=== PATIENT | female | born 1950 | race Caucasian/White ===

== ENCOUNTER 2018-01-05 01:16 | Observation (INO) ==
[2018-01-05] MEDS ORDERED: NITROGLYCERIN 2% OINT 1 INCH/GM PACK TOP STA (01:50)
[2018-01-05] MEDS ORDERED: ONDANSETRON 4 MG/2 ML VIAL IV STA ×2 (01:50→03:33)
[2018-01-05] MEDS ORDERED: MORPHINE 2 MG/1 ML SYRINGE IV STA ×2 (01:50→02:13)
[2018-01-05] MEDS ORDERED: ASPIRIN 325 MG TABLET PO STA (01:52)
[2018-01-05] MEDS ORDERED: TICAGRELOR 90 MG TABLET PO STA (01:52)
[2018-01-05] MEDS ORDERED: HEPARIN 5,000 UNIT/1 ML VIAL IV STA (01:53)
[2018-01-05] MEDS ORDERED: TICAGRELOR 90 MG TABLET ONE (01:55)
[2018-01-05] MEDS ORDERED: NITROGLYCERIN 2% OINT 1 INCH/GM PACK TOP ONE (01:55)
[2018-01-05] MEDS ORDERED: ONDANSETRON 4 MG/2 ML VIAL ONE (01:56)
[2018-01-05] MEDS ORDERED: ASPIRIN 325 MG TABLET ONE (01:56)
[2018-01-05] MEDS ORDERED: HEPARIN 5,000 UNIT/1 ML VIAL ONE (01:56)
[2018-01-05] MEDS ORDERED: MORPHINE 2 MG/1 ML SYRINGE ONE (02:08)
[2018-01-05] MEDS ORDERED: HEPARIN/NACL 0.9% 2 UNITS/ML 0 ML IV ONE (02:08)
[2018-01-05] MEDS ORDERED: LIDOCAINE 1% 20 ML VIAL ONE ×2 (02:08→09:36)
[2018-01-05 02:10] LABS: Hemoglobin 15.8 GM/DL (12.0-16.0); Red Blood Count 4.45 MC/CUMM (3.8-5.5); White Blood Count 10.2 T/CUMM (4-12)
[2018-01-05 02:11] LABS: Basophils # 0.1 10*3/uL (0.0-0.2); Basophils % 1.1 % (0.0-0.8); Eosinophils % 0.1 % (0.00-10.9); Hematocrit 44.9 VOL% (35.7-47.0); Immature Granulocytes % 0.5 %; Immature Granulocytes Absolute 0.05 #; Lymphocytes # 1.3 10*3/uL (1.4-4.0); Lymphocytes % 12.2 % (21.3-54.2); Mean Corpuscular HGB Conc 35.2 GM/DL (32-36); Mean Corpuscular Hemoglobin 36 PG (27-34); Mean Corpuscular Volume 100.9 FL (87-102); Mean Platelet Volume 10.7 FL (9.6-12.0); Monocytes # 0.3 10*3/uL (0.11-0.8); Monocytes % 2.7 % (1.7-12.7); Neutrophils # 8.5 10*3/uL (1.4-7.4); Neutrophils % 83.4 % (38.7-73.9); Platelet Count 252 T/CUMM (130-400); Red Cell Distribution Width 12.7 % (9.3-17.3)
[2018-01-05] MEDS ORDERED: HYDROmorphone 2 MG/1 ML VIAL IV STA ×2 (02:22→03:30)
[2018-01-05] MEDS ORDERED: PROMETHAZINE INJ 12.5 MG in SODIUM CHLORIDE 0.9% 50 ML IV STA (02:26)
[2018-01-05 02:35] LABS: Albumin 4.3 G/DL (3.4-5.0); Bilirubin,Total 0.6 MG/DL (0.2-1.0); Calcium 9.6 MG/DL (8.5-10.1); Potassium 3.9 MMOL/L (3.5-5.1)
[2018-01-05] MEDS ORDERED: PROMETHAZINE 25 MG/1 ML VIAL ONE (03:35)
[2018-01-05] MEDS ORDERED: HYDROmorphone 2 MG/1 ML VIAL ONE (03:36)
[2018-01-05] MEDS ORDERED: ONDANSETRON 4 MG/2 ML VIAL IV PRN (05:17)
[2018-01-05] MEDS ORDERED: MORPHINE 2 MG/1 ML SYRINGE IV PRN (05:17)
[2018-01-05 07:19] LABS: Risk Ratio 3.75; VLDL CHOLESTEROL 35.4 MG/DL
[2018-01-05] MEDS ORDERED: NITROGLYCERIN 2% OINT 1 INCH/GM PACK TOP SCH (08:00)
[2018-01-05] MEDS ORDERED: DIAZEPAM 5 MG TABLET PO ONE (09:05)
[2018-01-05] MEDS ORDERED: diphenhydrAMINE CAP 25 MG CAPSULE PO ONE (09:05)
[2018-01-05] MEDS ORDERED: ASPIRIN 300 MG SUPP RECTAL ONE (09:05)
[2018-01-05] MEDS ORDERED: HEPARIN/NACL 0.9% 2 UNITS/ML 2,000 ML IV ONE (09:36)
[2018-01-05] MEDS: CARVEDILOL 3.125 MG TABLET PO SCH ×2 (09:45→20:10)
[2018-01-05] MEDS ORDERED: fentaNYL 100 MCG/2 ML VIAL ONE (10:00)
[2018-01-05] MEDS ORDERED: MIDAZOLAM 2 MG/2 ML VIAL ONE ×2 (10:00→10:59)
[2018-01-05] MEDS ORDERED: ZALEPLON 5 MG CAPSULE PO PRN (11:22)
[2018-01-05] MEDS ORDERED: NITROGLYCERIN SL 0.4 MG TABLET SL PRN (11:22)
[2018-01-05] MEDS ORDERED: SODIUM CHLORIDE 0.45% 1,000 ML IV SCH (11:30)
[2018-01-05] MEDS: PANTOPRAZOLE 40 MG TABLET PO SCH (12:57)
[2018-01-05 19:24] LABS: Apearance,Urine CLEAR (Clear); Bilirubin,Urine Negative (Negative); Blood, Urine Negative (Negative); Glucose,Urine (UA) Negative (Negative); Ketones,Urine Negative (Negative); Mucus,Urine Occasional /LPF (Occasional); Nitrite,Urine Negative (Negative); Protein,Urine Negative; RBC,Urine 1 /HPF (0-4); Squamous Epithelial Cell,Urine Occasional /HPF (0-10); Urine Color Yellow (Yellow); Urine Specific Gravity 1.056 (1.001-1.035); Urine Urobilinogen < 2.0 EU/DL (0.2-1.0); WBC,Urine <1 /HPF (0-6)
[2018-01-05] MEDS ORDERED: ROSUVASTATIN 20 MG TABLET PO SCH (21:00)
[2018-01-05] MEDS ORDERED: OXYMETAZOLINE 0.05% NASAL SPRAY 15 ML BOTTLE BOTH NARES PRN (22:31)
[2018-01-05 22:47] LABS: Barbiturates Screen,Urine Negative (Negative); Benzodiazepines Screen,Urine Positive (Negative); Cannabinoid Screen,Urine Negative (Negative); Opiate Screen,Urine Positive (Negative); Phencyclidine Screen,Urine Negative (Negative)
[2018-01-06 05:46] LABS: Basophils # 0.1 10*3/uL (0.0-0.2); Basophils % 0.9 % (0.0-0.8); Eosinophils # 0.2 10*3/uL (0.0-0.87); Eosinophils % 2.7 % (0.00-10.9); Hematocrit 40.5 VOL% (35.7-47.0); Hemoglobin 13.7 GM/DL (12.0-16.0); Immature Granulocytes % 0.4 %; Immature Granulocytes Absolute 0.03 #; Lymphocytes # 3.2 10*3/uL (1.4-4.0); Mean Corpuscular HGB Conc 33.8 GM/DL (32-36); Mean Corpuscular Hemoglobin 35 PG (27-34); Mean Corpuscular Volume 103.3 FL (87-102); Mean Platelet Volume 10.6 FL (9.6-12.0); Monocytes # 0.7 10*3/uL (0.11-0.8); Monocytes % 9.2 % (1.7-12.7); Neutrophils # 3.6 10*3/uL (1.4-7.4); Neutrophils % 45.8 % (38.7-73.9); Platelet Count 181 T/CUMM (130-400); Red Blood Count 3.92 MC/CUMM (3.8-5.5); White Blood Count 7.8 T/CUMM (4-12)
[2018-01-06 06:18] LABS: Osmolality,Calculated 285.8 MOS/KG (273-304); Potassium 3.8 MMOL/L (3.5-5.1)
[2018-01-06 07:58] VITALS: BP 178/84
[2018-01-06] MEDS: CARVEDILOL 3.125 MG TABLET PO SCH (08:45)
[2018-01-06] MEDS: PANTOPRAZOLE 40 MG TABLET PO SCH (08:45)
[2018-01-06] MEDS ORDERED: ASPIRIN EC 81 MG TABLET PO SCH (09:00)
[2018-01-06] MEDS ORDERED: CLOPIDOGREL 75 MG TABLET PO SCH (09:00)
[2018-01-06] MEDS ORDERED: CARVEDILOL 3.125 MG TABLET PO ONE (09:29)
[2018-01-06] MEDS ORDERED: CARVEDILOL 6.25 MG TABLET PO SCH (21:00)
== END 2018-01-06 12:07 | disposition home or self-care (01) ==
LOC: EDBD → EDUNIT# → N.EDINP 01:16 → N.ED 01:16 → N.TELEN 05:47
PROVIDERS: ADMIT Internal Medicine; ATTEND Internal Medicine
PROC: CLCCHCL (ICD-10-PCS; 2018-01-05 10:15)

== ENCOUNTER 2018-02-15 17:28 | Observation (INO) ==
[2018-02-15 18:52] LABS: Basophils # 0.1 10*3/uL (0.0-0.2); Basophils % 1.1 % (0.0-0.8); Eosinophils # 0.6 10*3/uL (0.0-0.87); Eosinophils % 8.3 % (0.00-10.9); Hematocrit 43.8 VOL% (35.7-47.0); Hemoglobin 14.8 GM/DL (12.0-16.0); Immature Granulocytes % 0.3 %; Immature Granulocytes Absolute 0.02 #; Lymphocytes # 2.6 10*3/uL (1.4-4.0); Lymphocytes % 35.6 % (21.3-54.2); Mean Corpuscular HGB Conc 33.8 GM/DL (32-36); Mean Corpuscular Hemoglobin 35 PG (27-34); Mean Corpuscular Volume 103.5 FL (87-102); Mean Platelet Volume 11.5 FL (9.6-12.0); Monocytes # 0.6 10*3/uL (0.11-0.8); Neutrophils # 3.4 10*3/uL (1.4-7.4); Neutrophils % 46.7 % (38.7-73.9); Platelet Count 194 T/CUMM (130-400); Red Blood Count 4.23 MC/CUMM (3.8-5.5); Red Cell Distribution Width 11.7 % (9.3-17.3); White Blood Count 7.4 T/CUMM (4-12)
[2018-02-15 19:24] LABS: Albumin 3.8 G/DL (3.4-5.0); Osmolality,Calculated 277.4 MOS/KG (273-304); Potassium 3.9 MMOL/L (3.5-5.1); Total Protein 6.8 G/DL (6.4-8.3)
[2018-02-15 21:52] LABS: Barbiturates Screen,Urine Negative (Negative); Benzodiazepines Screen,Urine Negative (Negative); Cannabinoid Screen,Urine Negative (Negative); Opiate Screen,Urine Positive (Negative); Phencyclidine Screen,Urine Negative (Negative)
[2018-02-15] MEDS ORDERED: NITROGLYCERIN SL 0.4 MG TABLET SL PRN (23:47)
[2018-02-16] MEDS: CARVEDILOL 6.25 MG TABLET PO SCH ×3 (02:15→20:48)
[2018-02-16] MEDS: ROSUVASTATIN 20 MG TABLET PO SCH ×2 (02:15→20:47)
[2018-02-16] MEDS ORDERED: OXYMETAZOLINE 0.05% NASAL SPRAY 15 ML BOTTLE ONE (09:07)
[2018-02-16] MEDS ORDERED: CLOPIDOGREL 75 MG TABLET ONE (09:08)
[2018-02-16] MEDS ORDERED: CARVEDILOL 3.125 MG TABLET ONE ×2 (09:08)
[2018-02-16] MEDS ORDERED: ENOXAPARIN 40 MG/0.4 ML SYRINGE ONE (09:08)
[2018-02-16] MEDS ORDERED: ASPIRIN CHEW 81 MG TABLET PO ONE (09:08)
[2018-02-16] MEDS: ASPIRIN EC 81 MG TABLET PO SCH (09:18)
[2018-02-16] MEDS: OXYMETAZOLINE 0.05% NASAL SPRAY 15 ML BOTTLE BOTH NARES SCH (09:19)
[2018-02-16] MEDS: CLOPIDOGREL 75 MG TABLET PO SCH (09:19)
[2018-02-16] MEDS: ENOXAPARIN 40 MG/0.4 ML SYRINGE SUBCUT SCH (09:20)
[2018-02-16] MEDS: MONTELUKAST 10 MG TABLET PO SCH (09:38)
[2018-02-16] MEDS: FLUoxetine 20 MG CAPSULE PO SCH (09:39)
[2018-02-16] MEDS: ISOSORBIDE MONONITRATE 30 MG TABLET PO SCH (10:15)
[2018-02-16] MEDS: BUDESONIDE/FORMOTEROL 160-4.5 INHALER 6 GM INH SCH ×2 (10:15→20:47)
[2018-02-16] MEDS: ALUMINUM/MAGNES/SIMETH MAX STR 30 ML UDCUP PO SCH ×2 (17:16→20:47)
[2018-02-16] MEDS: PANTOPRAZOLE 40 MG TABLET PO SCH (20:48)
[2018-02-16] MEDS ORDERED: IBUPROFEN 600 MG TABLET PO PRN (22:09)
[2018-02-16] MEDS ORDERED: ZALEPLON 5 MG CAPSULE PO PRN (22:11)
[2018-02-16] MEDS ORDERED: ACETAMINOPHEN 325 MG TABLET PO ONE (22:30)
[2018-02-17] MEDS: ALUMINUM/MAGNES/SIMETH MAX STR 30 ML UDCUP PO SCH ×2 (01:17→05:45)
[2018-02-17 06:06] LABS: Basophils # 0.1 10*3/uL (0.0-0.2); Eosinophils # 0.7 10*3/uL (0.0-0.87); Eosinophils % 7.5 % (0.00-10.9); Hematocrit 39.3 VOL% (35.7-47.0); Hemoglobin 12.9 GM/DL (12.0-16.0); Immature Granulocytes % 0.3 %; Immature Granulocytes Absolute 0.03 #; Lymphocytes # 3.3 10*3/uL (1.4-4.0); Lymphocytes % 35.7 % (21.3-54.2); Mean Corpuscular HGB Conc 32.8 GM/DL (32-36); Mean Corpuscular Hemoglobin 35 PG (27-34); Mean Corpuscular Volume 105.9 FL (87-102); Mean Platelet Volume 11.4 FL (9.6-12.0); Monocytes # 0.8 10*3/uL (0.11-0.8); Neutrophils # 4.3 10*3/uL (1.4-7.4); Neutrophils % 46.5 % (38.7-73.9); Platelet Count 166 T/CUMM (130-400); Red Blood Count 3.71 MC/CUMM (3.8-5.5); Red Cell Distribution Width 11.7 % (9.3-17.3); White Blood Count 9.2 T/CUMM (4-12)
[2018-02-17 06:33] LABS: Calcium 8.4 MG/DL (8.5-10.1)
[2018-02-17 06:34] LABS: Osmolality,Calculated 279.4 MOS/KG (273-304); Potassium 3.9 MMOL/L (3.5-5.1)
[2018-02-17 12:10] VITALS: BP 132/79
[2018-02-17] MEDS: OXYMETAZOLINE 0.05% NASAL SPRAY 15 ML BOTTLE BOTH NARES SCH (12:52)
[2018-02-17] MEDS: ASPIRIN EC 81 MG TABLET PO SCH (12:52)
[2018-02-17] MEDS: CARVEDILOL 6.25 MG TABLET PO SCH (12:52)
[2018-02-17] MEDS: ISOSORBIDE MONONITRATE 30 MG TABLET PO SCH (12:52)
[2018-02-17] MEDS: CLOPIDOGREL 75 MG TABLET PO SCH (12:53)
[2018-02-17] MEDS: ENOXAPARIN 40 MG/0.4 ML SYRINGE SUBCUT SCH (12:53)
[2018-02-17] MEDS: PANTOPRAZOLE 40 MG TABLET PO SCH (12:53)
[2018-02-17] MEDS: FLUoxetine 20 MG CAPSULE PO SCH (12:53)
[2018-02-17] MEDS: MONTELUKAST 10 MG TABLET PO SCH (12:54)
[2018-02-17] MEDS: BUDESONIDE/FORMOTEROL 160-4.5 INHALER 6 GM INH SCH (12:54)
== END 2018-02-17 14:03 | disposition home or self-care (01) ==
LOC: EDBD → EDUNIT# → N.ED 17:28 → N.EDINP 17:28 → SUATTDRO 23:41 → N.EDINP 02-16 13:25 → N.TELEN 02-16 13:40
PROVIDERS: ADMIT Internal Medicine; ATTEND Internal Medicine

== ENCOUNTER 2018-10-11 12:08 | Observation (INO) ==
[2018-10-11] MEDS ORDERED: ONDANSETRON 4 MG/2 ML VIAL IV PRN ×2 (12:58→15:07)
[2018-10-11] MEDS ORDERED: MORPHINE 4 MG/1 ML VIAL IV PRN ×2 (12:58→16:01)
[2018-10-11 13:05] LABS: Basophils # 0.1 10*3/uL (0.0-0.2); Basophils % 1.1 % (0.0-0.8); Eosinophils # 0.4 10*3/uL (0.0-0.87); Eosinophils % 5.1 % (0.00-10.9); Hematocrit 44.4 VOL% (35.7-47.0); Hemoglobin 14.8 GM/DL (12.0-16.0); Immature Granulocytes % 0.4 %; Immature Granulocytes Absolute 0.03 #; Lymphocytes % 27.2 % (21.3-54.2); Mean Corpuscular HGB Conc 33.3 GM/DL (32-36); Mean Corpuscular Hemoglobin 34 PG (27-34); Mean Corpuscular Volume 101.4 FL (87-102); Mean Platelet Volume 10.4 FL (9.6-12.0); Monocytes # 0.5 10*3/uL (0.11-0.8); Neutrophils # 4.5 10*3/uL (1.4-7.4); Neutrophils % 60.2 % (38.7-73.9); Platelet Count 203 T/CUMM (130-400); Red Blood Count 4.38 MC/CUMM (3.8-5.5); Red Cell Distribution Width 12.2 % (9.3-17.3); White Blood Count 7.5 T/CUMM (4-12)
[2018-10-11 13:12] LABS: PT Patient Result 10.9 SECS; Partial Thromboplastin Time 24.7 SECS (0-40)
[2018-10-11 13:48] LABS: Albumin 3.5 G/DL (3.4-5.0); Bilirubin,Total 0.9 MG/DL (0.2-1.0); Osmolality,Calculated 280.4 MOS/KG (273-304); Potassium 4.2 MMOL/L (3.5-5.1); Total Protein 6.8 G/DL (6.4-8.3)
[2018-10-11] MEDS ORDERED: ALUM/MAG/SIMETH/LIDO VISC 1:1 30 ML BOTTLE PO STA (14:24)
[2018-10-11] MEDS ORDERED: PANTOPRAZOLE 40 MG VIAL IV STA (14:24)
[2018-10-11] MEDS ORDERED: ACETAMINOPHEN 325 MG TABLET PO PRN (15:07)
[2018-10-11] MEDS ORDERED: LORazepam 2 MG/1 ML VIAL IV PRN (15:13)
[2018-10-11] MEDS: ALBUTEROL/IPRATROPIUM 3 ML NEB RESP TX SCH (20:46)
[2018-10-11] MEDS: ENOXAPARIN 40 MG/0.4 ML SYRINGE SUBCUT SCH (22:13)
[2018-10-11] MEDS: FLUoxetine 20 MG CAPSULE PO SCH (22:13)
[2018-10-11] MEDS: AZITHROMYCIN 250 MG TABLET PO SCH (22:13)
[2018-10-11] MEDS: FAMOTIDINE 20 MG TABLET PO SCH (22:13)
[2018-10-11] MEDS: CARVEDILOL 6.25 MG TABLET PO SCH (22:14)
[2018-10-11] MEDS: cefTRIAXone 1,000 MG in SYRINGE 1 EACH IV SCH (22:14)
[2018-10-11] MEDS: traZODone 50 MG TABLET PO SCH (22:14)
[2018-10-11] MEDS: BUDESONIDE/FORMOTEROL 160-4.5 INHALER 6 GM INH SCH (22:19)
[2018-10-12] MEDS: ALBUTEROL/IPRATROPIUM 3 ML NEB RESP TX SCH ×4 (02:00→19:42)
[2018-10-12 04:38] LABS: Basophils # 0.1 10*3/uL (0.0-0.2); Basophils % 0.9 % (0.0-0.8); Eosinophils # 0.5 10*3/uL (0.0-0.87); Eosinophils % 5.1 % (0.00-10.9); Hemoglobin 13.6 GM/DL (12.0-16.0); Immature Granulocytes % 0.3 %; Immature Granulocytes Absolute 0.03 #; Lymphocytes # 3.1 10*3/uL (1.4-4.0); Mean Corpuscular HGB Conc 33.2 GM/DL (32-36); Mean Corpuscular Hemoglobin 33 PG (27-34); Mean Corpuscular Volume 100.7 FL (87-102); Mean Platelet Volume 10.6 FL (9.6-12.0); Monocytes # 0.7 10*3/uL (0.11-0.8); Monocytes % 7.9 % (1.7-12.7); Neutrophils # 4.4 10*3/uL (1.4-7.4); Neutrophils % 50.8 % (38.7-73.9); Platelet Count 176 T/CUMM (130-400); Red Blood Count 4.07 MC/CUMM (3.8-5.5); Red Cell Distribution Width 12.2 % (9.3-17.3); White Blood Count 8.8 T/CUMM (4-12)
[2018-10-12 05:12] LABS: Calcium 8.6 MG/DL (8.5-10.1); Osmolality,Calculated 277.7 MOS/KG (273-304); Potassium 3.7 MMOL/L (3.5-5.1); Thyroid Stimulating Hormone 1.98 uIU/ml (0.358-3.74)
[2018-10-12] MEDS: ROSUVASTATIN 20 MG TABLET PO SCH (09:26)
[2018-10-12] MEDS: MONTELUKAST 10 MG TABLET PO SCH (09:26)
[2018-10-12] MEDS: AZITHROMYCIN 250 MG TABLET PO SCH (09:27)
[2018-10-12] MEDS: MULTIVITAMIN (CENTRUM) TABLET PO SCH (09:27)
[2018-10-12] MEDS: CARVEDILOL 6.25 MG TABLET PO SCH ×2 (09:27→21:20)
[2018-10-12] MEDS: CLOPIDOGREL 75 MG TABLET PO SCH (09:27)
[2018-10-12] MEDS: ISOSORBIDE MONONITRATE 30 MG TABLET PO SCH (09:27)
[2018-10-12] MEDS: FOLIC ACID 1 MG TABLET PO SCH (09:27)
[2018-10-12] MEDS: BUDESONIDE/FORMOTEROL 160-4.5 INHALER 6 GM INH SCH ×2 (09:29→21:21)
[2018-10-12] MEDS: THIAMINE 100 MG TABLET PO SCH (09:30)
[2018-10-12] MEDS: PANTOPRAZOLE 40 MG TABLET PO SCH (09:30)
[2018-10-12] MEDS ORDERED: KETOROLAC 30 MG/1 ML VIAL IV ONE (10:14)
[2018-10-12] MEDS: ENOXAPARIN 40 MG/0.4 ML SYRINGE SUBCUT SCH (17:13)
[2018-10-12] MEDS: cefTRIAXone 1,000 MG in SYRINGE 1 EACH IV SCH (17:14)
[2018-10-12] MEDS: FAMOTIDINE 20 MG TABLET PO SCH (21:20)
[2018-10-12] MEDS: FLUoxetine 20 MG CAPSULE PO SCH (21:20)
[2018-10-12] MEDS: traZODone 50 MG TABLET PO SCH (21:20)
[2018-10-13] MEDS: ALBUTEROL/IPRATROPIUM 3 ML NEB RESP TX SCH ×2 (00:41→08:22)
[2018-10-13 04:12] LABS: Basophils # 0.1 10*3/uL (0.0-0.2); Basophils % 1.2 % (0.0-0.8); Eosinophils # 0.6 10*3/uL (0.0-0.87); Hematocrit 40.2 VOL% (35.7-47.0); Hemoglobin 13.3 GM/DL (12.0-16.0); Immature Granulocytes % 0.4 %; Immature Granulocytes Absolute 0.03 #; Lymphocytes # 3.2 10*3/uL (1.4-4.0); Lymphocytes % 41.4 % (21.3-54.2); Mean Corpuscular HGB Conc 33.1 GM/DL (32-36); Mean Corpuscular Hemoglobin 34 PG (27-34); Mean Corpuscular Volume 102.8 FL (87-102); Mean Platelet Volume 10.5 FL (9.6-12.0); Monocytes # 0.7 10*3/uL (0.11-0.8); Monocytes % 9.3 % (1.7-12.7); Neutrophils # 3.1 10*3/uL (1.4-7.4); Neutrophils % 39.7 % (38.7-73.9); Platelet Count 174 T/CUMM (130-400); Red Blood Count 3.91 MC/CUMM (3.8-5.5); Red Cell Distribution Width 12.2 % (9.3-17.3); White Blood Count 7.8 T/CUMM (4-12)
[2018-10-13 04:45] LABS: Calcium 8.5 MG/DL (8.5-10.1); Osmolality,Calculated 283.1 MOS/KG (273-304); Potassium 3.9 MMOL/L (3.5-5.1)
[2018-10-13] MEDS: ISOSORBIDE MONONITRATE 30 MG TABLET PO SCH (08:28)
[2018-10-13] MEDS: FOLIC ACID 1 MG TABLET PO SCH (08:28)
[2018-10-13] MEDS: MULTIVITAMIN (CENTRUM) TABLET PO SCH (08:28)
[2018-10-13] MEDS: AZITHROMYCIN 250 MG TABLET PO SCH (08:28)
[2018-10-13] MEDS: CLOPIDOGREL 75 MG TABLET PO SCH (08:28)
[2018-10-13] MEDS: CARVEDILOL 6.25 MG TABLET PO SCH (08:29)
[2018-10-13] MEDS: MONTELUKAST 10 MG TABLET PO SCH (08:29)
[2018-10-13] MEDS: THIAMINE 100 MG TABLET PO SCH (08:29)
[2018-10-13] MEDS: ROSUVASTATIN 20 MG TABLET PO SCH (08:29)
[2018-10-13] MEDS: PANTOPRAZOLE 40 MG TABLET PO SCH (08:29)
[2018-10-13] MEDS: BUDESONIDE/FORMOTEROL 160-4.5 INHALER 6 GM INH SCH (08:34)
[2018-10-13 12:16] VITALS: BP 123/82
== END 2018-10-13 13:23 | disposition home or self-care (01) ==
LOC: EDBD → EDUNIT# → N.EDINP 12:08 → N.ED 12:08 → N.2W 16:34 → N.TELEN 19:52
PROVIDERS: ADMIT Internal Medicine; ATTEND Internal Medicine